=== PATIENT | female | born 1980 | race Hispanic/Latino ===

== ENCOUNTER 2018-08-05 14:18 | Emergency (ER) | payer OTHER ==
[~2018-08-05 14:18] MED LIST: CEFU500T67 PO; DAPA1TAB4 PO; DULA1.5P SQ
[2018-08-05 14:51] LABS: APPEARANCE,URINE Clear (CLEAR); BILIRUBIN,URINE Negative (NEGATIVE); COLOR,URINE Yellow (YELLOW); GLUCOSE, URINE (UA) >=1000 mg/dL (NEGATIVE); KETONES,URINE 15 mg/dL (NEGATIVE); LEUKOCYTE ESTERASE ,URINE Trace (NEGATIVE); NITRATE,URINE Negative (NEGATIVE); OCCULT BLOOD,URINE Negative (NEGATIVE); PROTEIN,URINE Negative (NEGATIVE)
[2018-08-05 14:55] LABS: HCG,QUAL RESULT NEGATIVE (NEGATIVE)
[2018-08-05 14:58] LABS: BASOPHILS % (AUTO) 0.6 % (0.0-5.0); EOSINOPHILS % (AUTO) 1.3 % (0.0-8.0); HEMATOCRIT 43.9 % (36-48); LYMPHOCYTES % (AUTO) 18.5 % (21.0-51.0); MEAN CORPUSCULAR HEMOGLOBIN 30.7 pg (27.0-33.0); MEAN CORPUSCULAR HGB CONC 34.9 g/dL (32.0-36.0); MEAN CORPUSCULAR VOLUME 88.1 fL (79-99); MONOCYTES % (AUTO) 6.4 % (3.0-13.0); NEUTROPHILS % (AUTO) 73.2 % (40.0-77.0); NUCLEATED RED BLOOD CELLS 0.1 % (0.0-0.19); PLATELET COUNT (AUTO) 269 K/uL (130-400); RED BLOOD CELL COUNT(AUTO) 4.98 MIL/uL (4.00-5.50); RED CELL DISTRIBUTION WIDTH 12.4 % (11.0-15.5); WHITE BLOOD COUNT (AUTO) 10.7 K/uL (4.8-10.8)
[2018-08-05] MEDS ORDERED: KETOROLAC TROMETHAMINE 60 MG/2 ML VIAL ONE (15:21)
[2018-08-05 15:36] LABS: BACTERIA,URINE Few /HPF (None Seen); RBC,URINE 0-1 /HPF (0-1); YEAST,URINE BUDDING Rare /HPF (None Seen)
[2018-08-05 15:52] LABS: SQUAMOUS EPITHELIAL CELL,UR Few /HPF (0-2)
[2018-08-05 15:56] LABS: CREATININE 0.9 mg/dL (0.5-1.5); POTASSIUM 3.7 mmol/L (3.5-5.1)
[2018-08-05 16:00] LABS: ALBUMIN 3.5 g/dL (3.5-5.0); BILIRUBIN,TOTAL 0.3 mg/dL (0.2-1.0); TOTAL PROTEIN, SERUM 7.6 g/dL (6.0-8.3)
== END 2018-08-05 16:20 | disposition home or self-care (01) ==
LOC: EDH 14:18
DX: E11.65 Type 2 diabetes mellitus with hyperglycemia (principal); R10.30 Lower abdominal pain, unspecified; M54.5 Low back pain; Z90.49 Acquired absence of other specified parts of digestive tract
CPT/HCPCS: 36415; 80053; 81001; 81025; 83690; 85025; 96372; 99283; J1885

== ENCOUNTER 2018-08-15 21:40 | Emergency (ER) | payer OTHER ==
[2018-08-15] MEDS ORDERED: LIDOCAINE HCL 2% VISCOUS 15 ML UDCUP ONE (22:21)
== END 2018-08-15 22:29 | disposition home or self-care (01) ==
LOC: EDH 21:40
DX: K08.89 Other specified disorders of teeth and supporting structures (principal); E11.9 Type 2 diabetes mellitus without complications

== ENCOUNTER 2019-04-06 22:18 | Emergency (ER) | payer OTHER ==
[2019-04-06 22:51] LABS: HCG,QUAL RESULT NEGATIVE (NEGATIVE)
[2019-04-06 22:53] LABS: AMPHET/METH SCREEN,URINE NEGATIVE (NEGATIVE); BARBITURATE SCREEN, URINE NEGATIVE (NEGATIVE); BENZODIAZEPINES SCREEN,URINE NEGATIVE (NEGATIVE); CANNABINOID SCREEN,URINE NEGATIVE (NEGATIVE); COCAINE SCREEN,URINE NEGATIVE (NEGATIVE); OPIATE SCREEN,URINE NEGATIVE (NEGATIVE); PHENCYCLIDINE SCREEN,URINE NEGATIVE (NEGATIVE)
[2019-04-06 22:59] LABS: APPEARANCE,URINE CLEAR (CLEAR); BILIRUBIN,URINE SMALL (NEGATIVE); COLOR,URINE YELLOW (YELLOW); GLUCOSE, URINE (UA) >=1000 mg/dL (NEGATIVE); KETONES,URINE NEGATIVE (NEGATIVE); LEUKOCYTE ESTERASE ,URINE NEGATIVE (NEGATIVE); NITRATE,URINE NEGATIVE (NEGATIVE); OCCULT BLOOD,URINE LARGE (NEGATIVE); PROTEIN,URINE >=300 mg/dL (NEGATIVE); UROBILINOGEN,URINE 0.2 mg/dL (0.2-1.0)
[2019-04-06 23:01] LABS: BACTERIA,URINE Moderate /HPF (None Seen); RBC,URINE TNTC /HPF (0-1); YEAST,URINE BUDDING Many /HPF (None Seen)
[2019-04-06 23:06] LABS: BASOPHILS % (AUTO) 0.7 % (0.0-5.0); EOSINOPHILS % (AUTO) 1.7 % (0.0-8.0); HEMATOCRIT 41.4 % (36-48); LYMPHOCYTES % (AUTO) 18.9 % (21.0-51.0); MEAN CORPUSCULAR HGB CONC 34.3 g/dL (32.0-36.0); MEAN CORPUSCULAR VOLUME 87.6 fL (79-99); MONOCYTES % (AUTO) 5.2 % (3.0-13.0); NEUTROPHILS % (AUTO) 73.5 % (40.0-77.0); PLATELET COUNT (AUTO) 285 K/uL (130-400); RED BLOOD CELL COUNT(AUTO) 4.72 MIL/uL (4.00-5.50); RED CELL DISTRIBUTION WIDTH 12.5 % (11.0-15.5); WHITE BLOOD COUNT (AUTO) 14.9 K/uL (4.8-10.8)
[2019-04-06 23:20] LABS: CREATININE 0.8 mg/dL (0.5-1.5); POTASSIUM 3.8 mmol/L (3.5-5.1)
[2019-04-06 23:24] LABS: ALBUMIN 3.4 g/dL (3.5-5.0); BILIRUBIN,TOTAL 0.4 mg/dL (0.2-1.0); INR 0.89 (0.85-1.15); PARTIAL THROMBOPLASTIN TIME 25.7 SEC (26.3-35.5); PROTHROMBIN TIME 9.4 SEC (9.6-11.6); TOTAL PROTEIN, SERUM 7.4 g/dL (6.0-8.3)
[2019-04-06] MEDS ORDERED: INSULIN HUMULIN R 100 UNIT/ML 3ML ONE (23:32)
[2019-04-06] MEDS ORDERED: SODIUM CHLORIDE 0.9% 1000ML 1,000 ML IV ONE (23:33)
[2019-04-07] MEDS ORDERED: KETOROLAC TROMETHAMINE 30MG/ML ONE (00:09)
[2019-04-07] MEDS ORDERED: SODIUM CHLORIDE 0.9% 1000ML 1,000 ML IV ONE (00:19)
[2019-04-07] MEDS ORDERED: CEFTRIAXONE SODIUM 1 GM ONE (00:47)
== END 2019-04-07 01:43 | disposition home or self-care (01) ==
LOC: EDH 22:18
DX: E11.65 Type 2 diabetes mellitus with hyperglycemia (principal); R30.0 Dysuria; R31.9 Hematuria, unspecified; E86.0 Dehydration; R05 Cough; R10.30 Lower abdominal pain, unspecified; Z90.49 Acquired absence of other specified parts of digestive tract
CPT/HCPCS: 36415 ×2; 74176; 80053; 80305; 81001; 81025; 82010 ×2; 82550; 82948 ×2; 84100; 84484; 85025; 85610; 85730; 87088; 93005; 96361 ×2; 96374; 96375; 99284; J0696; J1815; J1885; J7030 ×2

== ENCOUNTER 2019-07-30 19:13 | Emergency (ER) | payer OTHER ==
[2019-07-30 19:35] LABS: APPEARANCE,URINE CLOUDY (CLEAR); BILIRUBIN,URINE SMALL (NEGATIVE); COLOR,URINE RED (YELLOW); GLUCOSE, URINE (UA) >=1000 mg/dL (NEGATIVE); KETONES,URINE 5 mg/dL (NEGATIVE); LEUKOCYTE ESTERASE ,URINE TRACE (NEGATIVE); NITRATE,URINE POSITIVE (NEGATIVE); OCCULT BLOOD,URINE LARGE (NEGATIVE); PH,URINE 6.5 (5.0-8.0); PROTEIN,URINE >=300 mg/dL (NEGATIVE)
[2019-07-30 19:38] LABS: HCG,QUAL RESULT NEGATIVE (NEGATIVE)
[2019-07-30] MEDS ORDERED: LIDOCAINE HCL-MPF 1% 2ML VIAL ONE (20:17)
[2019-07-30] MEDS ORDERED: CEFTRIAXONE SODIUM 1 GM ONE (20:17)
[2019-07-30 20:30] LABS: BACTERIA,URINE Many /HPF (None Seen); RBC,URINE TNTC /HPF (0-1)
[2019-07-30 20:31] LABS: SQUAMOUS EPITHELIAL CELL,UR 0-2 /HPF (0-2)
== END 2019-07-30 20:54 | disposition home or self-care (01) ==
LOC: EDH 19:13
DX: N39.0 Urinary tract infection, site not specified (principal); E11.9 Type 2 diabetes mellitus without complications; Z90.49 Acquired absence of other specified parts of digestive tract; Z98.890 Other specified postprocedural states
CPT/HCPCS: 81001; 81025; 87077; 87088; 87186; 96372; 99283; J0696; J3490

== ENCOUNTER 2019-12-05 10:48 | Inpatient (IN) | payer OTHER ==
[~2019-12-05] VITALS: Ht 157.5 cm; Wt 94.8 kg
[2019-12-05 11:24] LABS: CARBON DIOXIDE 27 mmol/L (21-32); CHLORIDE 100 mmol/L (101-111); CREATININE 0.7 mg/dL (0.5-1.5); GLOMERULAR FILTR. RATE CALC 100 mL/min (>60); GLUCOSE,RANDOM 291 mg/dL (70-105); POTASSIUM 3.4 mmol/L (3.5-5.1); SODIUM SERUM 136 mmol/L (136-145); UREA NITROGEN, BLOOD 7 mg/dL (7-18)
[2019-12-05 11:32] LABS: BASOPHILS % (AUTO) 0.4 % (0.0-5.0); EOSINOPHILS % (AUTO) 0.2 % (0.0-8.0); HEMATOCRIT 43.6 % (36-48); LYMPHOCYTES % (AUTO) 20.5 % (21.0-51.0); MEAN CORPUSCULAR HEMOGLOBIN 29.7 pg (27.0-33.0); MEAN CORPUSCULAR HGB CONC 34.2 g/dL (32.0-36.0); MEAN CORPUSCULAR VOLUME 86.9 fL (79-99); MONOCYTES % (AUTO) 5.8 % (3.0-13.0); NEUTROPHILS % (AUTO) 72.7 % (40.0-77.0); PLATELET COUNT (AUTO) 225 K/uL (130-400); RED BLOOD CELL COUNT(AUTO) 5.02 MIL/uL (4.00-5.50); RED CELL DISTRIBUTION WIDTH 12.4 % (11.0-15.5); WHITE BLOOD COUNT (AUTO) 5.1 K/uL (4.8-10.8)
[2019-12-05 11:43] LABS: ALANINE AMINOTRANSFERASE 24 U/L (12-78); ALBUMIN 2.9 g/dL (3.5-5.0); ASPARTATE AMINOTRANSFERASE 29 U/L (10-37); BILIRUBIN,TOTAL 0.5 mg/dL (0.2-1.0); CREATINE KINASE, TOTAL 24 U/L (21-232); MYOGLOBIN 15 ng/mL (10-92); TOTAL PROTEIN, SERUM 7.4 g/dL (6.0-8.3); TROPONIN I < 0.04 ng/mL (0.00-0.06)
[2019-12-05 12:18] LABS: INR 0.88 (0.85-1.15); PARTIAL THROMBOPLASTIN TIME 31.8 SEC (26.3-35.5); PROTHROMBIN TIME 9.5 SEC (9.6-11.6)
[2019-12-05 12:27] LABS: ABG BASE EXCESS 1.1 mmol/L (-2.0-3.0); ABG HCO3 25.1 mmol/L (21.0-28.0); ABG OXYGEN SATURATION 97.4 % (95.0-99.0); ABG PCO2 38 mmHg (32-45)
[2019-12-05] MEDS ORDERED: ENOXAPARIN SODIUM 100 MG/1 ML SQ ONE (14:52)
[2019-12-05 15:24] LABS: HEMOGLOBIN A1C 10.1 % (4.0-6.0)
[2019-12-05 15:28] LABS: CHOLESTEROL 130 mg/dL (<200); HDL CHOLESTEROL 68 mg/dL (35-85); LDL DIRECT 69 mg/dL (0-99); TRIGLYCERIDES 179 mg/dL (30-200)
[2019-12-05] MEDS: SODIUM CHLORIDE 0.9% 1000ML 1,000 ML IV SCH (16:13)
[2019-12-05] MEDS ORDERED: ONDANSETRON HCL 4 MG/2 ML VIAL IV PRN (16:15)
[2019-12-05] MEDS ORDERED: LACTULOSE 20 GM/30 ML UDCUP PO PRN (16:15)
[2019-12-05] MEDS: AZITHROMYCIN 500MG+NS 250ML 250 ML IV SCH (16:15)
[2019-12-05] MEDS ORDERED: METHYLPREDNISOLONE SOD SUCC 125MG/2ML VIAL IV SCH (16:15)
[2019-12-05] MEDS ORDERED: MORPHINE SULFATE 2 MG/ML 1ML SYG IV PRN (16:15)
[2019-12-05] MEDS: CEFTRIAXONE SODIUM 1 GM IV SCH (16:15)
[2019-12-05] MEDS ORDERED: ACETAMINOPHEN 325 MG TAB PO PRN ×2 (16:15)
[2019-12-05] MEDS: INSULIN HUMULIN R 100 UNIT/ML 3ML SQ SCH ×2 (16:30→21:00)
[2019-12-05] MEDS: ALBUTEROL INHALER 90MCG/INH IH SCH ×2 (16:45→20:45)
[2019-12-05] MEDS ORDERED: ALBUTEROL INHALER 90MCG/INH IH ONE (17:55)
[2019-12-05] MEDS ORDERED: METHYLPREDNISOLONE SOD SUCC 40MG/ML 1ML ONE ×2 (17:55→20:16)
[2019-12-05] MEDS ORDERED: AZITHROMYCIN 500MG+NS 250ML 250 ML IV ONE (17:56)
[2019-12-05] MEDS ORDERED: CEFTRIAXONE SODIUM 1 GM ONE (17:56)
[2019-12-05] MEDS ORDERED: IOHEXOL 350 MG/ML 100ML INFUS..BTL IV ONE (18:18)
[2019-12-05] MEDS ORDERED: INSULIN HUMULIN R 100 UNIT/ML 3ML ONE (20:28)
[2019-12-05] MEDS: FAMOTIDINE 20MG TAB 20 MG TAB PO SCH (21:00)
[2019-12-06] MEDS: ALBUTEROL INHALER 90MCG/INH IH SCH ×6 (00:45→20:45)
[2019-12-06] MEDS: SODIUM CHLORIDE 0.9% 1000ML 1,000 ML IV SCH ×3 (02:13→22:13)
[2019-12-06] MEDS ORDERED: METHYLPREDNISOLONE SOD SUCC 40MG/ML 1ML ONE ×3 (05:05→18:31)
[2019-12-06 05:40] LABS: BASOPHILS % (AUTO) 0.2 % (0.0-5.0); LYMPHOCYTES % (AUTO) 12.3 % (21.0-51.0); MEAN CORPUSCULAR HEMOGLOBIN 29.4 pg (27.0-33.0); MEAN CORPUSCULAR HGB CONC 33.9 g/dL (32.0-36.0); MEAN CORPUSCULAR VOLUME 86.7 fL (79-99); MONOCYTES % (AUTO) 2.3 % (3.0-13.0); NEUTROPHILS % (AUTO) 84.8 % (40.0-77.0); PLATELET COUNT (AUTO) 251 K/uL (130-400); RED BLOOD CELL COUNT(AUTO) 4.73 MIL/uL (4.00-5.50); RED CELL DISTRIBUTION WIDTH 12.1 % (11.0-15.5); WHITE BLOOD COUNT (AUTO) 5.7 K/uL (4.8-10.8)
[2019-12-06 05:56] LABS: CREATININE 0.6 mg/dL (0.5-1.5); POTASSIUM 3.8 mmol/L (3.5-5.1)
[2019-12-06] MEDS: INSULIN HUMULIN R 100 UNIT/ML 3ML SQ SCH ×4 (07:30→21:00)
[2019-12-06] MEDS ORDERED: FAMOTIDINE 20MG TAB 20 MG TAB ONE (08:00)
[2019-12-06] MEDS: ENOXAPARIN SODIUM 40 MG/0.4 ML SYRINGE SQ SCH (09:00)
[2019-12-06] MEDS: FAMOTIDINE 20MG TAB 20 MG TAB PO SCH ×2 (09:00→21:00)
--- NOTE | 2019-12-06 15:20 | NUR ---
CALL MADE X2 TO BOTH NUMBERS ON FACE SHEET- SAMMIE, FATHER AND YASMIN, PATIENT NO ANSWER TO EITHER ONE, WILL TRY AGAIN Addendum: 12/06/19 at 1521 by DANNY MIRZA RN CM Amended: Links added.
[2019-12-06] MEDS ORDERED: INSULIN HUMULIN R 100 UNIT/ML 3ML ONE ×2 (15:44→23:47)
[2019-12-06] MEDS: CEFTRIAXONE SODIUM 1 GM IV SCH (16:15)
[2019-12-06] MEDS: AZITHROMYCIN 500MG+NS 250ML 250 ML IV SCH (16:15)
[2019-12-06] MEDS ORDERED: AZITHROMYCIN 500MG+NS 250ML 250 ML IV ONE (17:25)
[2019-12-06] MEDS ORDERED: CEFTRIAXONE SODIUM 1 GM ONE (17:25)
[2019-12-06] MEDS ORDERED: ENOXAPARIN SODIUM 40 MG/0.4 ML SYRINGE SQ ONE (17:25)
[2019-12-06] MEDS ORDERED: SODIUM CHLORIDE 0.9% 50 ML IV ONE (17:26)
[2019-12-06] MEDS ORDERED: DEXAMETHASONE SOD PHOSPHATE 4 MG/ML 1ML VIAL ONE (20:46)
[2019-12-06] MEDS ORDERED: FAMOTIDINE/PF 20 MG/2 ML VIAL IV ONE (20:47)
[2019-12-07] MEDS: ALBUTEROL INHALER 90MCG/INH IH SCH ×4 (00:45→22:43)
[2019-12-07 02:05] VITALS: BP 111/82
[2019-12-07 07:33] LABS: BASOPHILS % (AUTO) 0.1 % (0.0-5.0); HEMATOCRIT 38.7 % (36-48); LYMPHOCYTES % (AUTO) 12.9 % (21.0-51.0); MEAN CORPUSCULAR HEMOGLOBIN 29.6 pg (27.0-33.0); MEAN CORPUSCULAR HGB CONC 33.6 g/dL (32.0-36.0); MEAN CORPUSCULAR VOLUME 88.2 fL (79-99); NEUTROPHILS % (AUTO) 79.4 % (40.0-77.0); PLATELET COUNT (AUTO) 334 K/uL (130-400); RED BLOOD CELL COUNT(AUTO) 4.39 MIL/uL (4.00-5.50); RED CELL DISTRIBUTION WIDTH 12.4 % (11.0-15.5); WHITE BLOOD COUNT (AUTO) 9.9 K/uL (4.8-10.8)
[2019-12-07 07:48] LABS: CREATININE 0.6 mg/dL (0.5-1.5); POTASSIUM 3.7 mmol/L (3.5-5.1)
[2019-12-07 08:00] VITALS: BP 115/73
[2019-12-07] MEDS ORDERED: DEXAMETHASONE SOD PHOSPHATE 4 MG/ML 1ML VIAL IM SCH (09:00)
[2019-12-07] MEDS: SODIUM CHLORIDE 0.9% 1000ML 1,000 ML IV SCH (09:33)
[2019-12-07] MEDS: FAMOTIDINE 20MG TAB 20 MG TAB PO SCH ×2 (09:54→22:43)
[2019-12-07] MEDS: ENOXAPARIN SODIUM 40 MG/0.4 ML SYRINGE SQ SCH (09:54)
[2019-12-07 11:00] VITALS: BP 127/88
[2019-12-07] MEDS: INSULIN HUMULIN R 100 UNIT/ML 3ML SQ SCH ×3 (12:29→22:45)
--- NOTE | 2019-12-07 15:01 | NUR ---
CM NOTE/IA UNSUCCESSFUL PATIENTS ROOM CALLED, NO ANSWER. FATHER, SAMMIE ROSALES, CALLED. AFTER 1 RING, WENT TO VOICEMAIL. VOICEMAIL LEFT, CM TO FOLLOW UP ACCORDINGLY FOR IA INTERVIEW.
[2019-12-07 16:00] VITALS: BP 141/68
[2019-12-07] MEDS ORDERED: INSULIN HUMULIN R 100 UNIT/ML 3ML SQ SCH (17:00)
[2019-12-07] MEDS: CEFTRIAXONE SODIUM 1 GM IV SCH (18:01)
[2019-12-07] MEDS: AZITHROMYCIN 500MG+NS 250ML 250 ML IV SCH (18:02)
[2019-12-07 20:00] VITALS: BP 114/66
[2019-12-07] MEDS: FLUTICASONE PROPIONATE 50MCG/SPRAY 16 GM BOTTLE EN SCH (21:15)
[2019-12-07] MEDS: LORATADINE 10 MG TABLET PO SCH (22:28)
[2019-12-07] MEDS: INSULIN GLARGINE 100 UNITS/ML 10 ML VIAL SQ SCH (22:46)
[2019-12-07 23:25] VITALS: BP 102/69
[2019-12-08] MEDS: ALBUTEROL INHALER 90MCG/INH IH SCH ×6 (00:45→22:07)
[2019-12-08 04:17] VITALS: BP 117/60
[2019-12-08] MEDS ORDERED: INSULIN HUMULIN R 100 UNIT/ML 3ML SQ SCH ×2 (07:30→11:30)
[2019-12-08] MEDS: INSULIN HUMULIN R 100 UNIT/ML 3ML SQ SCH ×5 (07:30→22:08)
[2019-12-08] MEDS: INSULIN GLARGINE 100 UNITS/ML 10 ML VIAL SQ SCH ×2 (07:32→22:09)
[2019-12-08 07:48] LABS: HEMATOCRIT 37.6 % (36-48); LYMPHOCYTES % (AUTO) 19.4 % (21.0-51.0); MEAN CORPUSCULAR VOLUME 87.9 fL (79-99); MONOCYTES % (AUTO) 9.6 % (3.0-13.0); NEUTROPHILS % (AUTO) 70.4 % (40.0-77.0); PLATELET COUNT (AUTO) 338 K/uL (130-400); RED BLOOD CELL COUNT(AUTO) 4.28 MIL/uL (4.00-5.50); RED CELL DISTRIBUTION WIDTH 12.6 % (11.0-15.5)
[2019-12-08 08:00] VITALS: BP 121/81
[2019-12-08 08:03] LABS: ALANINE AMINOTRANSFERASE 24 U/L (12-78); ALBUMIN 2.5 g/dL (3.5-5.0); ASPARTATE AMINOTRANSFERASE 15 U/L (10-37); BILIRUBIN,TOTAL 0.4 mg/dL (0.2-1.0); CARBON DIOXIDE 25 mmol/L (21-32); CHLORIDE 107 mmol/L (101-111); CREATININE 0.6 mg/dL (0.5-1.5); GLOMERULAR FILTR. RATE CALC 119 mL/min (>60); GLUCOSE,RANDOM 250 mg/dL (70-105); LACTATE DEHYDROGENASE 139 U/L (81-234); POTASSIUM 3.4 mmol/L (3.5-5.1); SODIUM SERUM 143 mmol/L (136-145); TOTAL PROTEIN, SERUM 6.2 g/dL (6.0-8.3); UREA NITROGEN, BLOOD 19 mg/dL (7-18)
[2019-12-08] MEDS: CEFTRIAXONE SODIUM 1 GM IV SCH (08:48)
[2019-12-08] MEDS: AZITHROMYCIN 500MG+NS 250ML 250 ML IV SCH (08:48)
[2019-12-08] MEDS: ENOXAPARIN SODIUM 40 MG/0.4 ML SYRINGE SQ SCH (08:49)
[2019-12-08] MEDS: DEXAMETHASONE SOD PHOSPHATE 4 MG/ML 1ML VIAL IVP SCH (08:49)
[2019-12-08] MEDS: FAMOTIDINE 20MG TAB 20 MG TAB PO SCH ×2 (08:49→22:07)
[2019-12-08] MEDS: LORATADINE 10 MG TABLET PO SCH (08:49)
[2019-12-08] MEDS: FLUTICASONE PROPIONATE 50MCG/SPRAY 16 GM BOTTLE EN SCH ×2 (09:00→21:00)
[2019-12-08 11:00] VITALS: BP 126/70
[2019-12-08] MEDS ORDERED: DEXTROSE 50%-WATER 50 ML DISP.SYRIN IV PRN (11:15)
[2019-12-08] MEDS ORDERED: GLUCAGON 1MG KIT 1 MG ML IM PRN (11:15)
[2019-12-08 16:00] VITALS: BP 127/67
--- NOTE | 2019-12-08 16:56 | NUR ---
MD VISIT DR LAGOS IN TO SEE PT. INFORMED PT HOSPITAL COVID TEST NEG, BUT BELIEVES IT TO BE A FALSE-NEGATIVE. PT TO RECEIVED PLASMA TRANSFUSION. PT TESTED POSITIVE FOR COVID 11/27/2019.
--- NOTE | 2019-12-08 16:57 | NUR ---
D/C PLAN CM spoke to pt regarding d/c planning. Pt. is ind. and lives alone with children. States her father is caring for her children while in hospital. States she was working prior to hospitalization and denies having any DME or services. Plan for now is to return home. CM to follow up for any possible home o2 needs. Addendum: 12/08/19 at 1659 by THI SABA CM Amended: Links added.
--- NOTE | 2019-12-08 17:04 | NUR ---
PLASMA PATHOLOGIST TO RETURN CALL TO DR LAGOS PENDING PLASMA RELEASE.
[2019-12-08 19:40] VITALS: BP 111/67
[2019-12-08 23:25] VITALS: BP 115/74
[2019-12-09] MEDS: ALBUTEROL INHALER 90MCG/INH IH SCH ×6 (00:45→22:21)
[2019-12-09 03:50] VITALS: BP 96/56
[2019-12-09] MEDS ORDERED: SODIUM CHLORIDE 0.9% 500ML 500 ML IV ONE (04:51)
[2019-12-09] MEDS: INSULIN HUMULIN R 100 UNIT/ML 3ML SQ SCH ×7 (06:25→22:06)
[2019-12-09] MEDS: INSULIN GLARGINE 100 UNITS/ML 10 ML VIAL SQ SCH ×2 (06:37→22:08)
[2019-12-09 08:00] VITALS: BP 108/66
[2019-12-09 08:07] LABS: BASOPHILS % (AUTO) 0.1 % (0.0-5.0); EOSINOPHILS % (AUTO) 0.1 % (0.0-8.0); HEMATOCRIT 33.2 % (36-48); LYMPHOCYTES % (AUTO) 32.1 % (21.0-51.0); MEAN CORPUSCULAR HEMOGLOBIN 29.4 pg (27.0-33.0); MEAN CORPUSCULAR VOLUME 86.5 fL (79-99); MONOCYTES % (AUTO) 10.8 % (3.0-13.0); NEUTROPHILS % (AUTO) 56.3 % (40.0-77.0); PLATELET COUNT (AUTO) 340 K/uL (130-400); RED BLOOD CELL COUNT(AUTO) 3.84 MIL/uL (4.00-5.50); RED CELL DISTRIBUTION WIDTH 12.4 % (11.0-15.5); WHITE BLOOD COUNT (AUTO) 7.9 K/uL (4.8-10.8)
[2019-12-09 08:53] LABS: ALANINE AMINOTRANSFERASE 24 U/L (12-78); ALBUMIN 2.6 g/dL (3.5-5.0); ASPARTATE AMINOTRANSFERASE 15 U/L (10-37); BILIRUBIN,TOTAL 0.2 mg/dL (0.2-1.0); CARBON DIOXIDE 30 mmol/L (21-32); CHLORIDE 108 mmol/L (101-111); CREATININE 0.7 mg/dL (0.5-1.5); GLOMERULAR FILTR. RATE CALC 100 mL/min (>60); GLUCOSE,RANDOM 86 mg/dL (70-105); LACTATE DEHYDROGENASE 150 U/L (81-234); SODIUM SERUM 145 mmol/L (136-145); UREA NITROGEN, BLOOD 20 mg/dL (7-18)
[2019-12-09] MEDS: FLUTICASONE PROPIONATE 50MCG/SPRAY 16 GM BOTTLE EN SCH ×2 (09:02→21:00)
[2019-12-09] MEDS: AZITHROMYCIN 500MG+NS 250ML 250 ML IV SCH (09:02)
[2019-12-09] MEDS: CEFTRIAXONE SODIUM 1 GM IV SCH (09:03)
[2019-12-09] MEDS: DEXAMETHASONE SOD PHOSPHATE 4 MG/ML 1ML VIAL IVP SCH (09:03)
[2019-12-09] MEDS: ENOXAPARIN SODIUM 40 MG/0.4 ML SYRINGE SQ SCH (09:03)
[2019-12-09] MEDS: FAMOTIDINE 20MG TAB 20 MG TAB PO SCH ×2 (09:03→22:21)
[2019-12-09] MEDS ORDERED: POTASSIUM CHLORIDE 20 MEQ ERTAB PO ONE (09:26)
[2019-12-09] MEDS: LORATADINE 10 MG TABLET PO SCH (09:27)
[2019-12-09] MEDS ORDERED: LIDOCAINE HCL-MPF 1% 2ML VIAL IV PRN (09:30)
[2019-12-09] MEDS ORDERED: POTASSIUM CHLORIDE 20MEQ/100ML 100 ML IV PRN (09:30)
[2019-12-09] MEDS ORDERED: POTASSIUM CHLORIDE 20 MEQ ERTAB PO PRN (09:30)
[2019-12-09 09:39] LABS: APPEARANCE,URINE Clear (CLEAR); BILIRUBIN,URINE Negative (NEGATIVE); COLOR,URINE Yellow (YELLOW); GLUCOSE, URINE (UA) >=1000 mg/dL (NEGATIVE); KETONES,URINE Negative (NEGATIVE); LEUKOCYTE ESTERASE ,URINE Negative (NEGATIVE); NITRATE,URINE Negative (NEGATIVE); OCCULT BLOOD,URINE Small (NEGATIVE); PH,URINE 6.5 (5.0-8.0); PROTEIN,URINE Negative (NEGATIVE)
[2019-12-09 11:00] VITALS: BP 110/65
[2019-12-09 11:51] LABS: BACTERIA,URINE Few /HPF (None Seen); RBC,URINE 0-1 /HPF (0-1); WBC,URINE 0-1 /HPF (0-1); YEAST,URINE BUDDING Few /HPF (None Seen)
[2019-12-09] MEDS: POTASSIUM CHLORIDE 10% ELIXIR 20 MEQ/15 ML UDCUP PO PRN ×2 (14:49→16:10)
[2019-12-09 16:00] VITALS: BP 122/75
[2019-12-09 20:27] VITALS: BP 117/64
--- NOTE | 2019-12-09 20:30 | NUR ---
Pt presented A&Ox4 and is cooperative and pleasant to talk to; pts mood is appropriate and she is groomed; pt stated she feels "much better" ad has not experienced SOB all day; pt has been up to bathed self and ambulate in room without application of O2; pt stated she had BM today; bowel sounds present in all four quadrants; pt administered medications, no PRNs were requested and/or administered; pts BS = 374; pt educated on benefits, risk and side effects of meds and encouraged to utilize PRNs to relieve symptoms of disease process; pt verbalized understanding; pt received ice and jello as requested; pt denies any requests and/or complaints at this time; pts respirations are even and unlabored, no distress noted; will continue to monitor throughout remainder of shift Addendum: 12/10/19 at 0010 by Chelsea Navarro RN RN Amended: Links added. Addendum: 12/10/19 at 0022 by Chelsea Navarro RN RN called to notify physician at 2203 about pts BS; administered ordered Humulin and Lantus
[2019-12-09 23:57] VITALS: BP 104/55
[2019-12-10] MEDS: ALBUTEROL INHALER 90MCG/INH IH SCH ×5 (00:45→17:25)
[2019-12-10 04:06] VITALS: BP 91/51
[2019-12-10] MEDS: INSULIN HUMULIN R 100 UNIT/ML 3ML SQ SCH ×6 (05:58→17:00)
[2019-12-10] MEDS: INSULIN GLARGINE 100 UNITS/ML 10 ML VIAL SQ SCH (05:59)
[2019-12-10 07:29] LABS: BASOPHILS % (AUTO) 0.1 % (0.0-5.0); EOSINOPHILS % (AUTO) 0.4 % (0.0-8.0); HEMATOCRIT 35.3 % (36-48); LYMPHOCYTES % (AUTO) 30.1 % (21.0-51.0); MEAN CORPUSCULAR HEMOGLOBIN 29.1 pg (27.0-33.0); MEAN CORPUSCULAR VOLUME 85.7 fL (79-99); MONOCYTES % (AUTO) 10.9 % (3.0-13.0); NEUTROPHILS % (AUTO) 57.2 % (40.0-77.0); PLATELET COUNT (AUTO) 338 K/uL (130-400); RED BLOOD CELL COUNT(AUTO) 4.12 MIL/uL (4.00-5.50); RED CELL DISTRIBUTION WIDTH 12.1 % (11.0-15.5)
[2019-12-10 08:00] VITALS: BP 106/67
[2019-12-10 08:09] LABS: ALANINE AMINOTRANSFERASE 31 U/L (12-78); ALBUMIN 2.6 g/dL (3.5-5.0); ASPARTATE AMINOTRANSFERASE 18 U/L (10-37); BILIRUBIN,TOTAL 0.3 mg/dL (0.2-1.0); CARBON DIOXIDE 29 mmol/L (21-32); CHLORIDE 105 mmol/L (101-111); CREATININE 0.6 mg/dL (0.5-1.5); GLOMERULAR FILTR. RATE CALC 119 mL/min (>60); GLUCOSE,RANDOM 127 mg/dL (70-105); LACTATE DEHYDROGENASE 133 U/L (81-234); POTASSIUM 3.5 mmol/L (3.5-5.1); SODIUM SERUM 141 mmol/L (136-145); TOTAL PROTEIN, SERUM 5.9 g/dL (6.0-8.3); UREA NITROGEN, BLOOD 12 mg/dL (7-18)
[2019-12-10] MEDS: CEFTRIAXONE SODIUM 1 GM IV SCH (09:22)
[2019-12-10] MEDS: AZITHROMYCIN 500MG+NS 250ML 250 ML IV SCH (09:22)
[2019-12-10] MEDS: FAMOTIDINE 20MG TAB 20 MG TAB PO SCH (09:22)
[2019-12-10] MEDS: LORATADINE 10 MG TABLET PO SCH (09:23)
[2019-12-10] MEDS: DEXAMETHASONE SOD PHOSPHATE 4 MG/ML 1ML VIAL IVP SCH (09:23)
[2019-12-10] MEDS: FLUTICASONE PROPIONATE 50MCG/SPRAY 16 GM BOTTLE EN SCH (11:42)
[2019-12-10] MEDS: ENOXAPARIN SODIUM 40 MG/0.4 ML SYRINGE SQ SCH (11:44)
[2019-12-10 12:00] VITALS: BP 103/55
--- NOTE | 2019-12-10 16:47 | NUR ---
DISCHARGE INSTRUCTION PATIENT GIVEN DISCHARGE AND VERBALIZED UNDERSTANDING , IV REMOVED WITH CATHETER INTACT AND SITE DRESSED, REVIEWED MEDICATIONS AND FOLLOW-UP PHYSICIANS APPOINTMENTS, PATIENT SAID SHE WILL CALL AND MAKE HER FOLLOW-UP APPOINTMENTS, WORK EXCUSE GIVEN AND REVIEWED WITH PATIENT , PATIENT DENIES PAIN AT THIS TIME, . PATIENT CALLED FOR HER RIDE AND THEY WILL BRING HER CLOTHES TO CHANGES . SHE WILL LET NURSE KNOW WHEN FAMILY IS HERE SO WE CAN PICK HER CLOTHES UP FOR HER TO CHANGE.
--- NOTE | 2019-12-10 17:34 | NUR ---
PATIENT DISCHARGE FAMILY BROUGHT CLOTHES AND IS WAITING FOR PATIENT DOWNSTAIR, PATIENT TRANSPORTED VIA WHEELCHAIR TO ER AREA TO MET FAMILY, NO QUESTIONS OR CONCERNS AT THIS TIME.
== END 2019-12-10 17:41 | disposition home or self-care (01) | DRG 189 ==
LOC: EDH 10:48 → OBSVTOIN 16:13 → EDHIP 16:13 → 4CH 12-07 00:50
PROVIDERS: ADMIT Internal Medicine; ATTEND Internal Medicine
PROC: 30233K1 Transfusion of Nonautologous Frozen Plasma into Peripheral Vein, Percutaneous Approach (ICD-10-PCS; principal; 2019-12-05)
DX: J96.01 Acute respiratory failure with hypoxia (principal); J18.9 Pneumonia, unspecified organism; J44.0 Chronic obstructive pulmonary disease with (acute) lower respiratory infection; Z20.828 Contact with and (suspected) exposure to other viral communicable diseases; E11.9 Type 2 diabetes mellitus without complications; R20.2 Paresthesia of skin; Z90.49 Acquired absence of other specified parts of digestive tract; Z83.3 Family history of diabetes mellitus; Z82.49 Family history of ischemic heart disease and other diseases of the circulatory system
CPT/HCPCS: 36415; 36600; 70450; 71045; 71275; 80048; 80053; 80061; 81001; 82550; 82728; 82803; 82948; 83036; 83605; 83615; 83874; 84145; 84443; 84484; 84702; 85025; 85378; 85610; 85730; 86140; 86850; 86900; 86901; 86927; 87040; 87077; 87088; 87186; 93005; 94760; G0378; J0456; J0696; J1100; J1650; J1815; J2920; J3490; J7040; P9017; Q9967; U0003

== ENCOUNTER 2021-07-12 10:51 | Emergency (ER) | payer OTHER ==
[~2021-07-12] VITALS: Ht 160 cm; Wt 99.8 kg
[~2021-07-12 10:51] MED LIST changes: -CEFU500T67 PO; -DAPA1TAB4 PO
[2021-07-12 10:52] VITALS: BP 127/67
[2021-07-12] MEDS: IBUPROFEN 400 MG TABLET ONE (10:58)
[2021-07-12] MEDS: HYDROCODONE/ACETAMINOPHEN 10/325 MG TAB PO ONE (12:15)
[2021-07-12] MEDS: LIDOCAINE 2%-EPI 1:200,000 20 ML VIAL IJ SCH (12:33)
[2021-07-12] MEDS: OCTYL 2-CYANOACRYLATE 1 EACH TP ONE (12:33)
[2021-07-12] MEDS: CEPHALEXIN 500 MG CAPSULE PO ONE (12:34)
[2021-07-12] MEDS: LIDOCAINE HCL 400MG/20ML VIAL ONE (12:34)
[2021-07-12] MEDS ORDERED: CLOT30SO2 TP (12:36)
[2021-07-12] MEDS ORDERED: CEPH500B PO (12:36)
[2021-07-12] MEDS ORDERED: ACET-2247 PO (12:36)
== END 2021-07-12 12:53 | disposition home or self-care (01) ==
LOC: EDH 10:51
DX: S91.202A Unspecified open wound of left great toe with damage to nail, initial encounter (principal); S90.112A Contusion of left great toe without damage to nail, initial encounter; B35.1 Tinea unguium; E11.9 Type 2 diabetes mellitus without complications; Z79.1 Long term (current) use of non-steroidal anti-inflammatories (NSAID); Z90.49 Acquired absence of other specified parts of digestive tract; X58.XXXA Exposure to other specified factors, initial encounter; Y93.89 Activity, other specified; Y92.89 Other specified places as the place of occurrence of the external cause; Y99.8 Other external cause status
CPT/HCPCS: 11730; 73660; 99284; J3490

== ENCOUNTER 2022-04-16 22:48 | Emergency (ER) | payer OTHER ==
[~2022-04-16] VITALS: Ht 157.5 cm; Wt 101.6 kg
[~2022-04-16 22:48] MED LIST changes: +ACET-2247 PO; +CEPH500B PO; +CLOT30SO2 TP
[2022-04-16] MEDS ORDERED: CYCLOBENZAPRINE HCL 10 MG TABLET PO ONE (23:00)
[2022-04-16] MEDS ORDERED: IBUPROFEN 800 MG TAB PO ONE (23:00)
[2022-04-16] MEDS ORDERED: GUAIFENESIN-CODEINE 5 ML SYRUP PO ONE (23:00)
[2022-04-16] MEDS ORDERED: ALBUTEROL INHALER 90MCG/INH IH ONE (23:30)
[2022-04-16] MEDS ORDERED: D-ME1POW16 PO (23:37)
[2022-04-16] MEDS ORDERED: ALBU6.7H14 IH (23:37)
[2022-04-16] MEDS ORDERED: IBUP-2071 PO (23:37)
[2022-04-16] MEDS ORDERED: CYCL10TA16 PO (23:37)
[2022-04-16 23:38] VITALS: BP 129/82
== END 2022-04-16 23:52 | disposition home or self-care (01) ==
LOC: EDH 22:48
DX: J06.9 Acute upper respiratory infection, unspecified (principal); Z20.822 Contact with and (suspected) exposure to COVID-19; E11.9 Type 2 diabetes mellitus without complications; Z79.1 Long term (current) use of non-steroidal anti-inflammatories (NSAID); Z79.899 Other long term (current) drug therapy; Z90.49 Acquired absence of other specified parts of digestive tract
CPT/HCPCS: 99284; 87635; 87880; 87804 ×2; C9803

== ENCOUNTER 2024-07-17 19:58 | Emergency (ER) | payer BC ==
[~2024-07-17] VITALS: Ht 157.5 cm; Wt 93.0 kg
[~2024-07-17 19:58] MED LIST changes: +ALBU6.7H14 IH; +CYCL10TA16 PO; +D-ME1POW16 PO; +IBUP-2071 PO
--- NOTE | 2024-07-17 20:34 | EKG ---
[facility] Test Date: 2024-07-17 Test Time: 20:31:34 Pat Name: YASMIN ROSALES Department: [facility] Room: Gender: F Medical Instrument Technician: [id number] : 1980 Requested By: ANGELICA MARIE Order Number: [id number] Reading MD: Rosa Mckenna Measurements Intervals Dyer Rate: 67 P: 18 NC: 157 QRS: -26 QRSD: 95 T: -25 QT: 408 QTc: 432 Interpretive Statements Sinus rhythm Compared to ECG 12/05/2019 11:12:02 Left-axis deviation no longer present Electronically Signed On 07-18-2024 17:03:31 BALLROOM DANCE INSTRUCTOR by Rosa Mckenna Please click the below link to view image of tracing.
[2024-07-17 22:09] LABS: BASOPHILS # (AUTO) 0.03 K/uL (0.00-0.20); BASOPHILS % (AUTO) 0.3 % (0.0-5.0); EOSINOPHILS # (AUTO) 0.21 K/uL (0.00-0.70); EOSINOPHILS % (AUTO) 1.9 % (0.0-8.0); HEMATOCRIT 40.2 % (36-48); IMMATURE GRANULOCYTE ABSOLUTE 0.03 K/uL (0-1); LYMPHOCYTES # (AUTO) 3.3 K/uL (1.0-4.8); LYMPHOCYTES % (AUTO) 30.5 % (21.0-51.0); MEAN CORPUSCULAR HEMOGLOBIN 30.1 pg (27.0-33.0); MEAN CORPUSCULAR HGB CONC 33.8 g/dL (32.0-36.0); MEAN CORPUSCULAR VOLUME 88.9 fL (79-99); MONOCYTES # (AUTO) 0.7 K/uL (0.1-1.0); MONOCYTES % (AUTO) 6.8 % (3.0-13.0); NEUTROPHILS # (AUTO) 6.6 K/uL (1.8-7.7); NEUTROPHILS % (AUTO) 60.2 % (40.0-77.0); PLATELET COUNT (AUTO) 291 K/uL (130-400); RED BLOOD CELL COUNT(AUTO) 4.52 MIL/uL (4.00-5.50); RED CELL DISTRIBUTION WIDTH 12.1 % (11.0-15.5); WHITE BLOOD COUNT (AUTO) 10.9 K/uL (4.8-10.8)
[2024-07-17 22:31] LABS: CREATININE 0.9 mg/dL (0.5-1.0); POTASSIUM 3.6 mmol/L (3.5-5.1)
[2024-07-17 22:36] LABS: MAGNESIUM 1.8 mg/dL (1.80-2.40)
[2024-07-17 22:48] LABS: B-TYPE NATRIURETIC PEPTIDE 26 pg/mL (0-100)
[2024-07-17 23:00] LABS: APPEARANCE,URINE CLEAR (CLEAR); BILIRUBIN,URINE NEGATIVE (NEGATIVE); COLOR,URINE LIGHT-YELLOW (YELLOW); GLUCOSE, URINE (UA) 300 mg/dL (NEGATIVE); KETONES,URINE NEGATIVE (NEGATIVE); LEUKOCYTE ESTERASE ,URINE 75 Leu/uL (NEGATIVE); NITRATE,URINE NEGATIVE (NEGATIVE); OCCULT BLOOD,URINE NEGATIVE (NEGATIVE); PROTEIN,URINE 10 mg/dL (NEGATIVE)
[2024-07-17 23:05] LABS: ADD UA MICROSCOPIC YES
[2024-07-17 23:07] LABS: AMPHET/METH SCREEN,URINE NEGATIVE (NEGATIVE); BARBITURATE SCREEN, URINE NEGATIVE (NEGATIVE); BENZODIAZEPINES SCREEN,URINE NEGATIVE (NEGATIVE); CANNABINOID SCREEN,URINE NEGATIVE (NEGATIVE); COCAINE SCREEN,URINE NEGATIVE (NEGATIVE); OPIATE SCREEN,URINE NEGATIVE (NEGATIVE); PHENCYCLIDINE SCREEN,URINE NEGATIVE (NEGATIVE)
[2024-07-17 23:08] LABS: MUCUS,URINE RARE LPF (None Seen); SQUAMOUS EPITHELIAL CELL,UR MOD /HPF (0-2)
[2024-07-17] MEDS: PANTOPrazole 40 MG/VIAL IVP ONE (23:09)
[2024-07-17] MEDS: 0.9%NACL 1000ML 1,000 ML IV ONE (23:10)
[2024-07-17] MEDS: metoCLOPRAmide 10 MG/2 ML VIAL IVP ONE (23:41)
[2024-07-17] MEDS: DiphenhydrAMINE HCL 50 MG/ML VIAL IV ONE (23:41)
[2024-07-17] MEDS: cefTRIAXone 1G VIAL IVPB ONE (23:41)
[2024-07-17] MEDS: acetaMINOPHEN 500 MG TABLET PO ONE (23:41)
--- NOTE | 2024-07-17 23:43 | ERN ---
ED Note History of Present Illness Stated Complaint: CHEST PAIN,MULTIPLE COMPLAINTS Chief Complaint: Chest Pain Time Seen by MD: 20:04 Time Seen by Midlevel: 20:04 Dictation: The patient is a 44-year-old with a history of diabetes, , cholecyst ectomy who presents to the emergency department with multiple complaints. Patient reports that she has been having headaches for a week. Reports that today at around 11:00 a.m. patient is started to get chest pressure that has been constant. Reports pain radiates to her left arm with some numbness. Denies any nausea or vomiting. Denies any fevers. Denies any cough or shortnes s of breath. Allergies: Coded Allergies: No Known Allergies (Verified Allergy, Unknown, 04/07/19) Home Meds Active Scripts Cyclobenzaprine HCl (Flexeril) 10 Mg Tab, 10 MG PO BID, #20 TAB Prov:ALEX ORTIZ 04/16/22 Ibuprofen (Ibuprofen) 800 Mg Tablet, 800 MG PO TID PRN for PAIN, #45 TAB Prov:ALEX ORTIZ 04/16/22 Albuterol Sulfate (Proventil Hfa) 6.7 Gm Hfa.aer.ad, 2 PUFF IH QID, #1 INHALER Prov:ALEX ORTIZ 04/16/22 D-Methorphan/PE/Acetaminophen (Theraflu Ms Severe Cold Pckt) 1 Each Powd.pack, 1 EACH PO QID, #20 PACKET Prov:ALEX ORTIZ 04/16/22 Acetaminophen (Tylenol) 325 Mg Tablet, 975 MG PO QIDP, #100 TAB Prov:ALEX ORTIZ 07/12/21 Cephalexin Monohydrate (Keflex) 500 Mg Cap, 500 MG PO TID for 7 Days, #21 CAP Prov:ALEX ORTIZ 07/12/21 Clotrimazole (Clotrimazole) 30 Ml Solution, 30 ML TP BID for toe nail fungus, #30 ML 2 Refills Prov:ALEX ORTIZ 07/12/21 Reported Medications Dulaglutide (Trulicity) 1.5 Mg/0.5 Ml Pen.injctr, 1.5 MG SQ QWEEK 03/11/16 Past Medical History Past Medical History: Diabetes-Type II Additional Past Medical Hx: Morbidly obese Surgical History: Cholecystectomy, Family History: Negative Social History: Lives with family RN Note Reviewed/Agreed w/PFSH: Yes Review of System Dictation Constitutional: Negative for fever,chills, and weight loss Eyes: Negative for injury, pain,redness, and discharge ENT: Negative for injury,pain or swelling Cardiovascular: Negative for, palpitations, and edema positive for chest pain Respiratory: Negative for shortness of breath, cough, and wheezing, Abdomen/GI: Negative for abdominal pain, nausea, vomiting, diarrhea, and cons tipation Back: Negative for injury and pain : Negative for injury, bleeding and discharge MS/Extremity: Negative for injury and deformity Skin: Negative for rash, and discoloration Neuro: Negative for weakness,tingling, and seizure positive for headache, left arm numbness Psych: Negative for suicide ideation, homicidal ideation, and hallucinations Initial Vital Sign VS Vital Signs Date Time Temp Pulse Resp B/P (MAP) Pulse Ox O2 Delivery O2 Flow Rate FiO2 07/17/24 20:29 98.2 60 18 122/81 96 07/17/24 23:10 Room Air* 0 21 Physical Exam Dictation Vital Signs reviewed General Appearance: Alert, oriented x 3, no acute distress, well developed, nourished. Head and Face: non-traumatic. Eyes: PERRL, pink conjunctivas, eyelid no trauma, anterior chamber with arcus senilis. Ears: Pinnas intact and no signs of trauma or erythema ear canals clear and no discharge TM no erythema Nose: No discharge, no bleeding. Oropharynx: Mouth normal, tongue pink. pharynx clear,no erythema, tonsils no exudates, no abscesses noted, mucous membrane moist Neck: Supple, non-tender, no thyromegaly, no masses, no JVD, no bruits Breast:Deferred Chest:No tenderness, no crepitus, no paradoxical movement, no retractions Lungs:Clear, well-ventilated, symmetric, no rales, no wheezing, no rhonchi, no stridor, good breath sounds bilaterally Heart: Regular rate, regular rhythm, no murmur, no gallops Vascular: no peripheral edema, Abdomen: Soft, positive bowel sounds, nondistended, no guarding, nontender, no rebound, no masses no hepatomegaly, no splenomegaly, no Ndiaye's sign, no hernias. Rectal: Deferred Genital: Deferred Neurological: Normal speech, motor function intact, sensory function intact , upper extremities equal and strength, lower extremities equal and strength Musculoskeletal: Neck nontender, full range of motion, back nontender, full range of motion, Extremities: nontender, full range of motion Skin: Color pink, dry, no turgor, no rash, no lacerations, no abrasions, no contusions. Lymphatic: Deferred Results (Laboratory/Radiology) Laboratory/Radiology Laboratory Tests Test 07/17/24 21:51 07/17/24 22:45 07/18/24 00:15 White Blood Count 10.9 K/uL (4.8-10.8) H Red Blood Count 4.52 MIL/uL (4.00-5.50) Hemoglobin 13.6 g/dL (12.0-16.0) Hematocrit 40.2 % (36-48) Mean Corpuscular Volume 88.9 fL (79-99) Mean Corpuscular Hemoglobin 30.1 pg (27.0-33.0) Mean Corpuscular Hemoglobin Concent 33.8 g/dL (32.0-36.0) Red Cell Distribution Width 12.1 % (11.0-15.5) Platelet Count 291 K/uL (130-400) Mean Platelet Volume 10.6 fL (7.5-10.5) H Immature Granulocyte % (Auto) 0.3 % (0-1) Neutrophils (%) (Auto) 60.2 % (40.0-77.0) Lymphocytes (%) (Auto) 30.5 % (21.0-51.0) Monocytes (%) (Auto) 6.8 % (3.0-13.0) Eosinophils (%) (Auto) 1.9 % (0.0-8.0) Basophils (%) (Auto) 0.3 % (0.0-5.0) Neutrophils # (Auto) 6.6 K/uL (1.8-7.7) Lymphocytes # (Auto) 3.3 K/uL (1.0-4.8) Monocytes # (Auto) 0.7 K/uL (0.1-1.0) Eosinophils # (Auto) 0.21 K/uL (0.00-0.70) Basophils # (Auto) 0.03 K/uL (0.00-0.20) Absolute Immature Granulocyte (auto 0.03 K/uL (0-1) Nucleated Red Blood Cells 0.0 % (0.0-0.19) Sodium Level 140 mmol/L (136-145) Potassium Level 3.6 mmol/L (3.5-5.1) Chloride Level 103 mmol/L (101-111) Carbon Dioxide Level 30 mmol/L (21-32) Blood Urea Nitrogen 20 mg/dL (7-18) H Creatinine 0.9 mg/dL (0.5-1.0) Glomerular Filtration Rate Calc 81 mL/min (>90) Random Glucose 213 mg/dL (70-105) H Total Calcium 8.6 mg/dL (8.5-10.1) Magnesium Level 1.80 mg/dL (1.80-2.40) Total Creatine Kinase 41 U/L (21-232) # Troponin I High Sensitivity < 4 ng/L (4-50) L < 4 ng/L (4-50) L B-Type Natriuretic Peptide 26 pg/mL (0-100) Lipase 78 U/L (16-77) H Serum Test, Qualitative NEGATIVE (NEGATIVE) Urine Color LIGHT-YELLOW (YELLOW) Urine Appearance CLEAR (CLEAR) Urine pH 6.0 (5.0-8.0) Urine Specific Kosse 1.033 (1.001-1.031) Urine Protein 10 mg/dL (NEGATIVE) H Urine Glucose (UA) 300 mg/dL (NEGATIVE) H Urine Ketones NEGATIVE mg/dL (NEGATIVE) Urine Occult Blood NEGATIVE (NEGATIVE) Urine Nitrate NEGATIVE (NEGATIVE) Urine Bilirubin NEGATIVE mg/dL (NEGATIVE) Urine Urobilinogen 2.0 mg/dL (0.2-1.0) H Urine Leukocyte Esterase 75 Lokesh/uL (NEGATIVE) H Urine RBC 2-5 /HPF (0-1) H Urine WBC 6-10 /HPF (0-1) H Urine Squamous Epithelial Cells MOD /HPF (0-2) Urine Bacteria None /HPF (None Seen) Urine Opiates Screen NEGATIVE (NEGATIVE) Urine Barbiturates Screen NEGATIVE (NEGATIVE) Urine Phencyclidine Screen NEGATIVE (NEGATIVE) Urine Amphetamines Screen NEGATIVE (NEGATIVE) Urine Benzodiazepines Screen NEGATIVE (NEGATIVE) Urine Cocaine Screen NEGATIVE (NEGATIVE) Urine Marijuana (THC) Screen NEGATIVE (NEGATIVE) Labs Reviewed?: Yes EKG: (+) rhythm (Sinus rhythm) EKG Comment: Date:07/17/2024 Time:2030 Ventricular rate:67 [place] interval:157 QRS duration:95 QT/QTc:408 EKG interpretation: Sinus rhythm Reviewed by ED Attending no STEMI ED Course ED Course Orders Procedure Category Date Status Time Cbc With Differential LAB 07/17/24 Complete 20:28 B-Type Natriuretic LAB 07/17/24 Complete Peptide 20:28 Chest 1vw RAD 07/17/24 Taken 20:28 12 Lead Ekg Tracing- EKG 07/17/24 Complete Technical 20:28 0.9%Nacl 1000ml (Ns PHA 07/17/24 Complete 1000ml) 20:30 Magnesium LAB 07/17/24 Complete 20:28 Creatine Kinase, Total LAB 07/17/24 Complete 20:28 Troponin I High LAB 07/17/24 Complete Sensitivity 20:28 Urinalysis Profile LAB 07/17/24 Complete 20:28 Basic Metabolic Panel LAB 07/17/24 Complete 20:28 Lipase LAB 07/17/24 Complete 20:28 Pantoprazole 40mg Inj PHA 07/17/24 Complete (Protonix 40mg Inj 20:30 Ct Head/Brain W/O CT 07/17/24 Taken Contrast 20:28 Drug Screen Urine LAB 07/17/24 Complete 20:28 Testing, LAB 07/17/24 Complete Serum Hcg 21:06 Culture Urine CHERYL 07/17/24 In Process 23:05 Troponin I High LAB 07/17/24 Complete Sensitivity 23:05 Acetaminophen 500mg PHA 07/17/24 Complete Tab (Tylenol 500mg T 23:30 Metoclopramide 10 PHA 07/17/24 Complete Mg/2 Ml Vial (Reglan 1 23:30 Diphenhydramine Hcl PHA 07/17/24 Complete (Benadryl Inj) 23:30 Ceftriaxone 1g Vial PHA 07/17/24 Complete (Rocephine 1g Inj) 23:30 Current Medications Medications (Trade) Dose Ordered Sig/Silvestre Route PRN Reason Start Time Stop Time Status Last Admin Dose Admin Acetaminophen (TYLenol 500MG TAB) 1,000 mg ONCE ONCE PO 07/17/24 23:30 07/17/24 23:31 DC 07/17/24 23:41 Ceftriaxone Sodium (ROCEphine 1G INJ) 1 gm ONCE ONCE IVPB 2/11/25 23:30 07/17/24 23:31 DC 07/17/24 23:41 Diphenhydramine HCl (BENAdryl INJ) 25 mg ONCE ONCE IV 07/17/24 23:30 07/17/24 23:31 DC 07/17/24 23:41 Metoclopramide HCl (regLAN 10MG IV) 10 mg ONCE ONCE IVP 07/17/24 23:30 07/17/24 23:31 DC 07/17/24 23:41 Pantoprazole Sodium (PROTonix 40MG INJ) 40 mg ONCE ONCE IVP 07/17/24 20:30 07/17/24 20:31 DC 07/17/24 23:09 Sodium Chloride 1,000 ml @ 0 mls/hr ONCE ONCE IV 07/17/24 20:30 07/17/24 20:31 DC 07/17/24 23:10 Vital Signs Date Time Temp Pulse Resp B/P (MAP) Pulse Ox O2 Delivery O2 Flow Rate FiO2 07/17/24 23:10 97.9 62 18 132/68 96 Room Air* 0 21 07/17/24 20:29 98.2 60 18 122/81 96 HEART Score Response (Comments) Value History: Moderate suspicion (+1) 1 EKG: Normal 0 Age: < 45yrs (0) 0 Risk Factors: 1-2 risk factors (+1) 1 Initial Troponin: Normal limit (0) 0 Total 2 Medical Decision Making MDM The patient is a 44-year-old with a history of diabetes, , cholecystectomy who presents to the emergency department with multiple complaints. Patient reports that she has been having headaches for a week. Reports that today at around 11:00 a.m. patient is started to get chest pressure that has been constant. Reports pain radiates to her left arm with some numbness. Denies any nausea or vomiting. Denies any fevers. Denies any cough or shortness of breath. CBC showed mild leukocytosis, no anemia, chemistry showed GFR of 81, elevated blood glucose of 213, no DKA. Patient received a L of fluids in ER. Slightly elevated lipase. Patient with no abdominal pain. Negative troponin x2, urinalysis with positive leukocyte esterase, toxicology negative. CT head showed no acute intracranial hemorrhage. Patient reassessed and reports she feels better. Continues neurologically intact. It is reports headache has improved. Patient instructed to follow up with PCP. Patient no acute distress, nontoxic appearing Differential diagnosis: ACS, intracerebral hemorrhage, migraine headache, electrolyte imbalance, dehydration Need for hospitalization: Patient does not meet criteria for hospitalization. There are no social concerns with this patient. DX & DISP Disposition: Discharge Departure Impression: Primary Impression: Chest pain Additional Impressions: Headache, UTI (urinary tract infection), Uncontrolled diabetes mellitus Condition: Stable Scripts Cephalexin Monohydrate (Keflex) 500 Mg Cap 500 MG PO BID for 7 Days, #14 CAP Prov: ANGELICA MARIE 07/18/24 Additional Instructions: Please follow up with your primary doctor in 1-2 days. Please return to ER if symptoms worsen. FOLLOW-UP WITH PRIMARY CARE PROVIDER IN 1 TO 2 DAYS. TAKE MEDICATIONS DIRECTED HERE IN THE EMERGENCY ROOM. OKAY TO CONTINUE HOME MEDICATIONS UNLESS OTHERWISE DISCUSSED DURING YOUR VISIT IN THE EMERGENCY ROOM TODAY. RETURN TO YOUR NEAREST EMERGENCY ROOM IF SYMPTOMS WORSEN OR IF THERE IS NO IMPROVEMENT. CALL 911 IF YOU NEED IMMEDIATE ASSISTANCE. TAKE TYLENOL OR MOTRIN OVER-THE- COUNTER NEEDED AND IF NO CONTRAINDICATIONS ARE PRESENT. INCREASE ORAL HYDRATION. A WOUND CULTURE OR URINE CULTURE WAS ORDERED HERE IN THE EMERGENCY ROOM DEPARTMENT PLEASE FOLLOW-UP WITH PRIMARY CARE PROVIDER AND ADVISE THEM TO GET REPEAT PORTS FROM OUR FACILITY. IF YOU HAD ANY NETTA WRAP/SPLINTS THAT WERE APPLIED HERE, PLEASE DO NOT REMOVE THEM UNTIL YOU SEE YOUR PRIMARY CARE OR SPECIALTY. Referrals: MICHAEL BRAN MD (PCP) Time of Disposition: 01:27 I have reviewed the case, and I agree with, Diagnosis and Plan ANGELICA MARIE Jul 17, 2024 23:43
[2024-07-18] MEDS ORDERED: CEPH500B PO (01:29)
[2024-07-18 01:30] VITALS: BP 125/68; PULSE 66; RESP 18; TEMP 98.2; O2SAT 96
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
--- NOTE | 2024-07-18 13:21 | HMCIMG ---
CHEST 1VW HISTORY: Chest pain COMPARISON: None FINDINGS: A frontal projection of the chest was obtained. No acute pulmonary infiltrates is seen. The heart is normal in size. Prominent interstitial markings are seen. No evidence of aortic calcification is seen. IMPRESSION: 1. No acute pulmonary infiltrate is seen.
== END 2024-07-18 01:46 | disposition home or self-care (01) ==
LOC: EDH 19:58
DX: R07.89 Other chest pain (principal); R51.9 Headache, unspecified; N39.0 Urinary tract infection, site not specified; E11.65 Type 2 diabetes mellitus with hyperglycemia; E66.01 Morbid (severe) obesity due to excess calories; Z90.49 Acquired absence of other specified parts of digestive tract
CPT/HCPCS: 99284; 96374; 96375; 70450; 71045; 96361; 82550; 83735; 84484 ×2; 80048; 83880; 80305; 84703; 83690; 85025; 87086; 36415; 93005; 81001; J1200; J7030; J0696; J2470; J2765

== ENCOUNTER 2024-09-20 15:50 | Emergency (ER) | payer BC ==
[~2024-09-20] VITALS: Ht 157.5 cm; Wt 99.8 kg
[2024-09-20] MEDS: methoCARBamol 500 MG TABLET PO STA (16:27)
[2024-09-20] MEDS: acetaMINOPHEN 500 MG TABLET PO STA (16:27)
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
[2024-09-20] MEDS ORDERED: METH-811 PO (16:38)
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
[2024-09-20 17:05] VITALS: BP 128/71; PULSE 77; RESP 16; TEMP 98.7; O2SAT 98
== END 2024-09-20 17:06 | disposition home or self-care (01) ==
LOC: EDH 15:50
DX: M62.838 Other muscle spasm (principal); M25.511 Pain in right shoulder; M25.512 Pain in left shoulder; E11.9 Type 2 diabetes mellitus without complications; E66.01 Morbid (severe) obesity due to excess calories; Z90.49 Acquired absence of other specified parts of digestive tract; V89.2XXA Person injured in unspecified motor-vehicle accident, traffic, initial encounter; Y93.89 Activity, other specified; Y92.488 Other paved roadways as the place of occurrence of the external cause; Y99.8 Other external cause status
CPT/HCPCS: 72125; 99284

== ENCOUNTER 2025-05-06 05:06 | Emergency (ER) | payer BC ==
[~2025-05-06] VITALS: Ht 157.5 cm; Wt 90.7 kg
--- NOTE | 2025-05-06 05:55 | ERN ---
ED Note History of Present Illness Stated Complaint: COUGH, BACK PAIN, SUBJECTIVE FEVER, Chief Complaint: Multiple Complaints Time Seen by MD: 05:13 Dictation: This is a 45-year-old obese female who presented to the emergency room with flu- like syndrome runny nose cough back pain and subjective fevers for 3 days. She also reports sore throat and she took Tylenol at 10:00 p.m.. Has small amounts of sputum but no hemoptysis. She stated that she has nausea and she has been vomitings unable to even drink fluids. Temperature 97.8 pulse 107 respirations 20 blood pressure 112/70 with a pulse oximetry of 97% on room air Chronic medical problems include diabetes mellitus type 2 morbid obesity Allergies: Coded Allergies: No Known Allergies (Verified Allergy, Unknown, 04/07/19) Home Meds Active Scripts Methocarbamol (Methocarbamol) 500 Mg Tablet, 1 TAB PO TID for 5 Days, #15 TAB 0 Refills Prov:YUNIOR CRAWFORD AERIAL PHOTOGRAPHER 09/20/24 Cephalexin Monohydrate (Keflex) 500 Mg Cap, 500 MG PO BID for 7 Days, #14 CAP Prov:ANGELICA MARIE SURGICAL CLINICAL REVIEWER 07/18/24 Cyclobenzaprine HCl (Flexeril) 10 Mg Tab, 10 MG PO BID, #20 TAB Prov:ALEX ORTIZ 04/16/22 Ibuprofen (Ibuprofen) 800 Mg Tablet, 800 MG PO TID PRN for PAIN, #45 TAB Prov:ALEX ORTIZ 04/16/22 Albuterol Sulfate (Proventil Hfa) 6.7 Gm Hfa.aer.ad, 2 PUFF IH QID, #1 INHALER Prov:ALEX ORTIZ 04/16/22 D-Methorphan/PE/Acetaminophen (Theraflu Ms Severe Cold Pckt) 1 Each Powd.pack, 1 EACH PO QID, #20 PACKET Prov:ALEX ORTIZ 04/16/22 Acetaminophen (Tylenol) 325 Mg Tablet, 975 MG PO QIDP, #100 TAB Prov:ALEX ORTIZ 07/12/21 Cephalexin Monohydrate (Keflex) 500 Mg Cap, 500 MG PO TID for 7 Days, #21 CAP Prov:ALEX ORTIZ 07/12/21 Clotrimazole (Clotrimazole) 30 Ml Solution, 30 ML TP BID for toe nail fungus, #30 ML 2 Refills Prov:ALEX ORTIZ 07/12/21 Reported Medications Dulaglutide (Trulicity) 1.5 Mg/0.5 Ml Pen.injctr, 1.5 MG SQ QWEEK 03/11/16 Past Medical History Past Medical History: Diabetes-Type II, Other Additional Past Medical Hx: Morbidly obese Surgical History: Cholecystectomy, Family History: Negative Social History: Lives with family RN Note Reviewed/Agreed w/PFSH: Yes Review of System Dictation Constitutional: positive for fever,chills, body ache, sore throat Eyes: Negative for injury, pain,redness, and discharge ENT: Negative for injury,pain or swelling Cardiovascular: Negative for chest pain, palpitations, and edema Respiratory: Negative for shortness of breath, cough, and wheezing, Abdomen/GI: Negative for abdominal pain, nausea, vomiting, diarrhea, and constipation Back: Negative for injury and positive for pain : Negative for injury, bleeding and discharge MS/Extremity: Negative for injury and deformity Skin: Negative for rash, and discoloration Neuro: Negative for headache, weakness, numbness, tingling, and seizure Psych: Negative for suicide ideation, homicidal ideation, and hallucinations Initial Vital Sign VS Vital Signs Date Time Temp Pulse Resp B/P (MAP) Pulse Ox O2 Delivery O2 Flow Rate FiO2 05/06/25 05:08 97.9 107 20 112/70 97 Room Air 05/06/25 06:27 0 21 Physical Exam Dictation General: awake, alert, NAD morbidly obese Head/Face: Normocephalic, atraumatic Eyes: PERRL, EOMI, vision at baseline ENT: oral cavity clear, TMs clear, no signs of infection Neck: Trachea midline, supple, no nuchal rigidity Cardiovascular: RRR, normal S1/S2, No MRGs, no JVD Respiratory: Decreased air entry, no respiratory distress, No rales or wheezes Abdomen: Soft, non-tender, non-distended, normal bowel sounds, no guarding or rebound. Skin: Warm, dry, normal turgor, no rash MS/Extremity: Pulses equal, no cyanosis, neurovascular intact, FROM Neuro: COAx4, GCS 15, strength 5/5, CN 2-12 intact, normal cerebellar exam, normal gait, Psych: Normal behavior, mood, and affect normal Extremities-trace edema without any palpable cords, Homans sign is negative Results (Laboratory/Radiology) Laboratory/Radiology Laboratory Tests Test 05/06/25 05:44 Influenza Type A Antigen Negative For Type A Influenza Type B Antigen Negative For Type B SARS-CoV-2, RNA, NAAT NEGATIVE SARS CoV-2 Group A Streptococcus Rapid negative (NEGATIVE) Labs Reviewed?: Yes ED Course ED Course Orders Procedure Category Date Status Time Covid Rna Naat LAB 05/06/25 Complete 05:38 Influenza Type A & B, LAB 05/06/25 Complete Rapid 05:38 Rapid (Group A Strep) LAB 05/06/25 Complete 05:38 Urinalysis Profile LAB 05/06/25 In Process 05:51 ,Urine Test LAB 05/06/25 In Process 05:51 Ketorolac PHA 05/06/25 In Process Tromethamine 30mg/Ml 06:30 Ondansetron 4mg Inj PHA 05/06/25 Verified (Zofran 4mg Inj) 06:30 Methylprednisolone PHA 05/06/25 Verified Succ 125mg (Solu-Medr 06:30 Ns 1000ml Bolus PHA 05/06/25 Verified 06:30 Current Medications Medications (Trade) Dose Ordered Sig/Silvestre Route PRN Reason Start Time Stop Time Status Last Admin Dose Admin Ketorolac Tromethamine (toRADol) 30 mg ONCE ONCE IM 05/06/25 06:30 05/06/25 06:31 Vital Signs Date Time Temp Pulse Resp B/P (MAP) Pulse Ox O2 Delivery O2 Flow Rate FiO2 05/06/25 06:27 98.4 106 18 112/70 98 Room Air* 0 21 05/06/25 05:08 97.9 107 20 112/70 97 Room Air Medical Decision Making MDM Differential diagnosis: Influenza, COVID, RSV, streptococcal pharyngitis, otitis media, acute viral syndrome, pneumonia, bronchitis This is a 45-year-old obese female who presented to the emergency room with flu- like syndrome runny nose cough back pain and subjective fevers for 3 days. She also reports sore throat and she took Tylenol at 10:00 p.m.. Has small amounts of sputum but no hemoptysis. She stated that she has nausea and she has been vomitings unable to even drink fluids. Temperature 97.8 pulse 107 respirations 20 blood pressure 112/70 with a pulse oximetry of 97% on room air Chronic medical problems include diabetes mellitus type 2 morbid obesity Nasopharyngeal swabs for influenza COVID were negative. I updated the patient that this may simply be a viral syndrome, acute bronchitis is certainly a possibility. We will give trial of nonsteroidal and steroid and gentle hydration. He will be discharged to home on a steroid trial and [id number] flu and multi symptom relief. Rationale: Tests considered and ordered secondary to shared decision making include: Previous outside records reviewed: Old ER visits. Risk of complication and/or morbidity or mortality of patient management: None Medications-Per medication reconciliation Need for hospitalization: Patient does not meet criteria for hospitalization. Need for emergency major/minor surgery: No There are no social concerns with this patient. Prescription drug management Prescriptions will include symptomatic care Patient's prior external medical records from other ER visits were reviewed by me as indicated. Prior testing and results from previous visits were reviewed. Prior tests were taken into account with medical decision making and resource utilization, independent historian/historians were used to obtain complete medical history. I independently interpreted the test that were performed, results were reviewed by me and considered findings on radiology if ordered. Medical management and examination interpretation discussions were had by me with other qualified healthcare professionals as indicated for the patient's care. Problem List Problem List: (1) Acute bronchitis (2) Pleuritic chest pain (3) Uncontrolled diabetes mellitus (4) Viral URI with cough DX & DISP Disposition: Discharge Departure Impression: Primary Impression: Acute bronchitis Additional Impressions: Pleuritic chest pain, Uncontrolled diabetes mellitus, Viral URI with cough Condition: Stable Scripts Azithromycin (Zithromax) 250 Mg Tablet 1 TAB PO AD for 5 Days, #6 TAB 0 Refills 2 the first day followed by 1 for days 2-5 Prov: GEORGES STUBBS MD 05/06/25 Prednisone (Prednisone) 20 Mg Tablet 1 TAB PO AD for 6 Days, #14 TAB 0 Refills TAKE 1 TAB BY MOUTH THREE TIMES PER DAY X3 DAYS, THEN TAKE 1 TAB BY MOUTH TWICE A DAY X2 DAYS, THEN TAKE 1 TAB BY MOUTH ONCE A DAY X1 DAY. Prov: GEORGES STUBBS MD 05/06/25 Additional Instructions: Patient and the caregiver have been informed of all the diagnostic tests and the imaging conducted during the today's visit to the emergency room and has verbalized understanding of the results I have personally reviewed and interpreted all diagnostic exams performed here in the ER today as well as the vital signs documented by the nursing staff. The patient is now being discharged to home and should follow up with the primary care physician or the specialist as directed by the ER staff. Follow-up with primary care provider in 1 to 2 days. Take medications as directed here in the emergency room. Okay to continue home medications unless otherwise discussed during your visit in the emergency room today. Return to your nearest emergency room if symptoms worsen or if there is no improvement. Call 911 if you need immediate assistance. Take Tylenol or Motrin [id number] as needed and if no contraindications are present. Increase oral hydration. A wound culture or urine culture was ordered here in the emergency room department please follow-up with primary care provider and advise them to get repeat ports from our facility. If you had any Goldy wrap/splints that were applied here, please do not remove them until you see your primary care or specialty. Referrals: MICHAEL BRAN MD (PCP) GEORGES STUBBS MD May 06, 2025 05:55
[2025-05-06 06:05] LABS: RAPID GROUP A STREP negative (NEGATIVE)
[2025-05-06 06:08] LABS: SARS-CoV-2, RNA, NAAT NEGATIVE SARS CoV-2 (NEGATIVE)
[2025-05-06 06:15] LABS: INFLUENZA TYPE A Negative For Type A (NEGATIVE); INFLUENZA TYPE B Negative For Type B (NEGATIVE)
[2025-05-06 06:27] VITALS: BP 112/70; PULSE 106; RESP 18; TEMP 98.4; O2SAT 98
[2025-05-06 06:47] LABS: APPEARANCE,URINE CLOUDY (CLEAR); GLUCOSE, URINE (UA) 150 mg/dL (NEGATIVE); LEUKOCYTE ESTERASE ,URINE 250 Leu/uL (NEGATIVE); NITRATE,URINE NEGATIVE (NEGATIVE); OCCULT BLOOD,URINE NEGATIVE (NEGATIVE)
[2025-05-06 06:48] LABS: HCG,QUALITATIVE URINE NEGATIVE (NEGATIVE)
[2025-05-06 06:49] LABS: ADD UA MICROSCOPIC YES
[2025-05-06] MEDS: 0.9%NACL 1000ML 1,000 ML IV ONE (06:58)
[2025-05-06 06:59] LABS: SQUAMOUS EPITHELIAL CELL,UR Moderate /HPF (0-2)
== END 2025-05-06 07:45 | disposition home or self-care (01) ==
LOC: EDH 05:06
DX: J20.9 Acute bronchitis, unspecified (principal); R07.89 Other chest pain; E11.65 Type 2 diabetes mellitus with hyperglycemia; J06.9 Acute upper respiratory infection, unspecified; Z90.49 Acquired absence of other specified parts of digestive tract; Z98.890 Other specified postprocedural states; Z20.822 Contact with and (suspected) exposure to COVID-19
CPT/HCPCS: 99284; 96374; 87635; 96375; 87086; 87880; 87804 ×2; 81001; 81025; 96372; J1885; J2919; J7030; J2405